=== PATIENT | male | born 1990 | race Two or more races ===

== ENCOUNTER 2019-02-14 13:21 | Emergency (ER) | payer OTHER ==
[~2019-02-14] VITALS: Ht 180.3 cm; Wt 86.2 kg
[2019-02-14 13:55] VITALS: BP 143/99
[2019-02-14] MEDS ORDERED: clonazePAM 0.5 MG TAB PO ONE (14:30)
== END 2019-02-14 14:37 | disposition home or self-care (01) ==
LOC: ER 13:21
DX: F41.9 Anxiety disorder, unspecified (principal); E07.9 Disorder of thyroid, unspecified; F17.210 Nicotine dependence, cigarettes, uncomplicated; Z76.0 Encounter for issue of repeat prescription

== ENCOUNTER 2020-04-22 11:23 | Emergency (ER) | payer MEDICAID, OTHER ==
[~2020-04-22] VITALS: Ht 180.3 cm; Wt 90.7 kg
[2020-04-22 11:30] VITALS: BP 127/91
[2020-04-22] MEDS ORDERED: HYDROcodone-ACET 5/325MG TAB PO ONE (12:45)
[2020-04-22] MEDS ORDERED: OXYMETAZOLINE HCL 0.05 % NASAL SPRAY 15ML EACHNOSTRI ONE (12:45)
== END 2020-04-22 13:08 | disposition home or self-care (01) ==
LOC: ER 11:23
DX: R04.0 Epistaxis (principal); G89.29 Other chronic pain; M54.5 Low back pain; F17.210 Nicotine dependence, cigarettes, uncomplicated
CPT/HCPCS: 30901

== ENCOUNTER 2020-08-01 10:16 | Emergency (ER) | payer MEDICAID, OTHER ==
[~2020-08-01] VITALS: Ht 180.3 cm; Wt 90.7 kg
[2020-08-01] MEDS ORDERED: ASPirin 81 mg TAB PO ONE (10:30)
[2020-08-01] MEDS ORDERED: SODIUM CHLORIDE 0.9% 1,000 ML IV ONE (10:45)
[2020-08-01] MEDS ORDERED: HYDROcodone-ACET 10/325MG TAB PO ONE (10:45)
[2020-08-01 11:08] LABS: Basophils # (auto) 0 10 ^3/uL (0-0.2); Basophils % (auto) 0.6 % (0.0-2.0); Eosinophils # (auto) 0 10 ^3/uL (0-0.8); Hemoglobin 15.7 g/dL (13.5-17.5); Lymphocytes # (auto) 1.4 10 ^3/uL (0.4-5.4); White Blood Cell 8.6 10^3/uL (4.4-10.8)
[2020-08-01 11:09] LABS: Eosinophils % (auto) 0.5 % (0.0-7.0); Hematocrit 45.5 % (41.0-53.0); Lymphocytes % (auto) 16.4 % (10.0-50.0); Mean Corpuscular Hemoglobin 27.4 pg (28.0-32.0); Mean Corpuscular Hgb Conc. 34.4 g/dL (32.0-36.0); Mean Corpuscular Volume 79.7 fL (80.0-100.0); Monocytes # (auto) 0.5 10 ^3/uL (0-1.3); Monocytes % (auto) 6.2 % (0.0-12.0); Neutrophils # (auto) 6.6 10 ^3/uL (1.6-8.6); Neutrophils % (auto) 76.3 % (37.0-80.0); Nucleated Red Blood Cells % 0.1 %; Platelet Count (auto) 297 10^3/uL (140-450); Red Blood Cells 5.71 10^6/uL (4.5-5.90)
[2020-08-01 11:40] LABS: Amphetamine Screen, Urine NEGATIVE (NEGATIVE); Barbiturate Scree,Urine NEGATIVE (NEGATIVE); Benzodiazephine Screen, Urine POSITIVE (NEGATIVE); Cannabinoid Screen, Urine NEGATIVE (NEGATIVE); Cocaine Screen, Urine NEGATIVE (NEGATIVE); Opiate Scree,Urine NEGATIVE (NEGATIVE); Phencyclidine Screen, Urine NEGATIVE (NEGATIVE)
[2020-08-01] MEDS ORDERED: MORPHINE SULFATE 4 MG/ML SYR/VIAL IV ONE (11:45)
[2020-08-01] MEDS ORDERED: ONDANSETRON HCL 4 MG/2 ML VIAL IV ONE (11:45)
[2020-08-01 11:59] LABS: Red Cell Distribution Width 20.7 % (11.8-14.3)
[2020-08-01 12:06] LABS: INR 1.08 (0.9-1.15); Partial Thromboplastin Time 28.6 sec (23.0-31.2)
[2020-08-01] MEDS ORDERED: KETOROLAC TROMETH 30 MG/ML 1ML VIAL IV ONE (13:00)
[2020-08-01 13:20] VITALS: BP 135/98
[2020-08-01 13:38] LABS: Anion Gap 9 (5-15); Blood Urea Nitrogen 14 mg/dL (7-18); Carbon Dioxide 18 mmol/L (21-32); Chloride 113 mmol/L (98-107); Glucose 101 mg/dL (74-106); Potassium 3.4 mmol/L (3.5-5.1); Sodium 140 mmol/L (136-145)
[2020-08-01 13:39] LABS: Alanine Aminotransferase 20 U/L (16-61); Albumin 4.8 g/dL (3.4-5.0); Alkaline Phosphatase 85 U/L (45-117); Aspartate Aminotransferase 12 U/L (15-37); BUN/Creatinine Ratio 12.2; Bilirubin, Total 0.5 mg/dL (0.2-1.0); Calcium 8.8 mg/dL (8.5-10.1); GFR African American 95 mL/min; GFR Non-African American 79 mL/min; Magnesium 2.5 mg/dL (1.6-2.6); Total Protein 9.2 g/dL (6.4-8.2)
== END 2020-08-01 13:23 | disposition home or self-care (01) ==
LOC: ER 10:16
DX: G89.4 Chronic pain syndrome (principal); M54.9 Dorsalgia, unspecified; F17.210 Nicotine dependence, cigarettes, uncomplicated; Z88.6 Allergy status to analgesic agent
CPT/HCPCS: 36415; 71045; 80053; 80307; 83735; 84443; 84484; 85025; 85610; 85730; 93005; 96361; 96374; 99285; J1885; J7030